=== PATIENT | female | born 1965 | race Caucasian/White ===

== ENCOUNTER 2017-05-16 06:33 | Day surgery (SDC) | payer BC ==
[~2017-05-16 06:33] MED LIST: Buffered Lidocaine 0.9% SYRIN* 5 ML/SYR SYRINGE INTRADERM ONE
[2017-05-16] MEDS ORDERED: fentaNYL* 50 MCG/ML 2 ML VIAL (100 MCG VIAL) ONE (07:19)
[2017-05-16] MEDS ORDERED: Neomycin/Polymy/Dex OPHTH.OIN* 3.5 GM ONE (07:19)
[2017-05-16] MEDS ORDERED: BSS OPTH.SOL* BTL ONE (07:19)
[2017-05-16] MEDS ORDERED: Midazolam* 1 MG/ML 2 ML VIAL (2 MG) ONE (07:19)
[2017-05-16] MEDS ORDERED: Tetracaine 0.5% OPTH.SOL 15ML* BTL ONE (07:19)
[2017-05-16] MEDS ORDERED: Phenylephrine 2.5% OPTH.SOL* 2 ML BTL ONE (07:19)
[2017-05-16] MEDS ORDERED: Scopolamine 1.5 mg* PATCH ONE (07:40)
[2017-05-16] MEDS ORDERED: Famotidine IV* 10 MG/ML 2 ML (20 mg) ONE (07:40)
[2017-05-16] MEDS ORDERED: Propofol* 10 MG/ML 20 ML BTL IV PUSH ONE (07:47)
[2017-05-16] MEDS ORDERED: Ondansetron INJ* 2 MG/ML VIAL ONE (07:47)
[2017-05-16] MEDS ORDERED: Dexamethasone IV* 4 MG/ML 1 ML (4 MG) ONE (07:47)
[2017-05-16] MEDS ORDERED: Lidocaine 2% PF * 5 ML VIAL ONE (07:47)
[2017-05-16] MEDS ORDERED: Acetaminophen TAB* 325 MG PO PRN (08:02)
[2017-05-16] MEDS ORDERED: Ondansetron INJ* 2 MG/ML VIAL IV PRN (08:02)
[2017-05-16] MEDS ORDERED: fentaNYL* 50 MCG/ML 2 ML VIAL (100 MCG VIAL) IV PRN (08:02)
[2017-05-16] MEDS ORDERED: PROCHLORPERAZINE INJ 5 MG/ML 2 ML VIAL IV PRN (08:02)
[2017-05-16 12:55] VITALS: BP 115/74
--- NOTE | 2017-05-17 00:21 | OP ---
DATE OF OPERATION: 05/16/17 - [facility] DATE OF : 63 SURGEON: Reynaldo Raygoza MD COMMUNITY ASSOCIATE: Kayla Rivas, medical student, [employer]. ANESTHESIOLOGIST: Christal Levi MD ANESTHESIA: General. 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 OPERATIVE PROCEDURE: Recess each medial rectus muscle 4.5 mm. ESTIMATED BLOOD LOSS: Minimal. COMPLICATIONS: None. DESCRIPTION OF PROCEDURE: The patient was brought to the operating room and received general anesthesia. A drop of tetracaine and a drop of phenylephrine were placed in each eye. The patient was prepped in the usual sterile fashion for ophthalmic surgery and attention was directed to the right eye, where speculum was placed. Forced duction was performed and found to be normal. The eye was grasped in the inferonasal quadrant and brought to superotemporal gaze. An inferonasal fornix incision was made to the conjunctiva. Tenon's capsule was violated. The medial rectus muscle was isolated with a Lawrence muscle hook. The conjunctiva was reflected off the surface of the muscle. Tenon's capsule was opened on the opposite end of the muscle. The muscle was gently cleaned with sharp dissection. A double-armed 6-0 Vicryl suture was woven into the muscle and locked at either end. The muscle was disinserted from the globe with the Joann scissors. The original insertion site was grasped with interrupted locking forceps. A radha was made on the sclera using a caliper measuring 4.5 mm posterior to the original insertion. The muscle was recessed to this point. The sutures were tied securely. The muscle was inspected and found to be in good position. The locking forceps were removed. Gentle cauterization at the original insertion site was performed to achieve hemostasis. The conjunctiva was then closed with interrupted with 6-0 gut sutures. The speculum was removed and placed in the contralateral eye. Here the exact same procedure was performed. At the end of the case, the eye appeared straight. There was no active bleeding. The patient was given a drop of tetracaine in each eye followed by Maxitrol ointment. She was awakened uneventfully and sent to the recovery room in stable condition with postop instructions and followup appointment given. [id number]/[facility] #: [id number] RIC
[2017-05-19] MEDS ORDERED: Scopolomine PATCH Remove* 1 NOTE MISC PATCH OFF ONE (08:04)
== END 2017-05-16 09:30 | disposition home or self-care (01) ==
LOC: OREAST 06:33
PROVIDERS: ATTEND Ophthalmology
DX: H50.05 Alternating esotropia (principal)
CPT/HCPCS: 81025; A9270-GY; J1100; J2250; J2405; J2704; J3010